=== PATIENT | female | born 1985 ===

== ENCOUNTER 2017-09-09 21:27 | Emergency (ER) | payer OTHER ==
[~2017-09-09] VITALS: Ht 152.4 cm; Wt 92.5 kg
[2017-09-09] MEDS ORDERED: VENTOLIN HFA18 GM INH (21:42)
[2017-09-09] MEDS ORDERED: SPRINTEC1 EACH PO (23:42)
== END 2017-09-09 23:50 | disposition home or self-care (01) ==
LOC: ED 21:27
DX: N93.8 Other specified abnormal uterine and vaginal bleeding (principal); Z98.51 Tubal ligation status
CPT/HCPCS: 36415; 84703; 85025; 99283